=== PATIENT | female | born 1960 | race Caucasian/White ===

== ENCOUNTER 2018-08-08 19:49 | Emergency (ER) | payer BC ==
[~2018-08-08] VITALS: Ht 167.6 cm; Wt 71.4 kg
[~2018-08-08 19:49] MED LIST: ASPIRIN 81 MG E81 MG PO; LOPRESSOR25 MG; PLAVIX75 MG PO; PRAVACHOL40 MG PO
[2018-08-08 20:04] VITALS: Ht 167.6 cm; Wt 71.4 kg
[2018-08-08] MEDS ORDERED: XANAX0.5 MG (20:05)
[2018-08-08 20:56] LABS: APPEARANCE HAZY (CLEAR); COLOR RED (YELLOW); SPECIFIC GRAVITY 1.015 (1.005-1.020)
[2018-08-08 20:57] LABS: BILIRUBIN NEGATIVE (NEGATIVE); GLUCOSE NEGATIVE (NEGATIVE); KETONE NEGATIVE (NEGATIVE); NITRITE NEGATIVE (NEGATIVE); PROTEIN 1+ mg/dL (NEGATIVE); RED CELLS - URINE >50 /hpf (0-5); UROBILINOGEN NORMAL (NORMAL)
[2018-08-08 20:59] LABS: WHITE CELLS - URINE 0-5 /hpf (0-5)
[2018-08-08 21:00] LABS: BACTERIA FEW /hpf (NONE SEEN); EPITHELIAL CELLS OCC /hpf (0-5)
[2018-08-08 22:29] LABS: BASOPHILS 0.1 % (0-2); EOSINOPHILS 0.1 % (0-7); HEMATOCRIT 43.8 % (36.0-48.0); IMMATURE GRANULOCYTES 0.3 % (0-5); LYMPHOCYTES 6.6 % (15-50); MCH 31.3 pg (26.0-34.0); MCHC 34.2 g/dL (31.0-37.0); MCV 91.3 fL (80.0-100.0); MEAN PLATELET VOLUME 9.6 fL (7.4-10.4); MONOCYTES 7.7 % (2-11); NEUTROPHILS 85.2 % (40-80); RDW 12.7 % (11.5-14.5); WBC 18.6 10x3/uL (4.8-10.8)
[2018-08-08 22:30] LABS: ALBUMIN 3.6 g/dL (3.4-5.0); ANION GAP 16.7 mmol/L (8-16); BILIRUBIN - TOTAL 0.64 mg/dL (0.2-1.3); CALCIUM 9.2 mg/dL (8.5-10.1); CARBON DIOXIDE 23.9 mmol/L (21.0-32.0); PLATELET COUNT 312 10x3/uL (130-400); POTASSIUM - SERUM 3.6 mmol/L (3.5-5.1); PROTEIN - SERUM 8.4 g/dL (6.4-8.2)
[2018-08-09] MEDS ORDERED: ZOFRAN8 MG PO (00:29)
[2018-08-09] MEDS ORDERED: TORADOL10 MG PO (00:29)
[2018-08-09 01:24] VITALS: BP 133/75
== END 2018-08-09 01:25 | disposition home or self-care (01) ==
LOC: D.ER 19:49
PROVIDERS: Family Medicine
DX: R10.9 Unspecified abdominal pain (principal); R11.2 Nausea with vomiting, unspecified; R31.9 Hematuria, unspecified; F17.200 Nicotine dependence, unspecified, uncomplicated

== ENCOUNTER → 2018-08-24 18:43 | Outpatient (CLI) | payer BC ==
[2018-08-08 20:04] VITALS: BMI 25.4
[~2018-08-24 18:43] MED LIST changes: +TORADOL10 MG PO; +XANAX0.5 MG; +ZOFRAN8 MG PO
== END | disposition home or self-care (01) ==
LOC: D.LABREF 18:43
PROVIDERS: Urology
DX: N20.0 Calculus of kidney (principal)

== ENCOUNTER → 2018-08-24 19:25 | Outpatient (CLI) | payer BC ==
[2018-08-08 20:04] VITALS: BMI 25.4
== END | disposition home or self-care (01) ==
LOC: D.LABREF 19:25
DX: R31.9 Hematuria, unspecified (principal); D72.829 Elevated white blood cell count, unspecified

== ENCOUNTER 2018-09-04 06:05 | Inpatient (IN) | payer BC ==
[2018-09-03 11:35] LABS: BASOPHILS 0.4 % (0-2); EOSINOPHILS 3.3 % (0-7); HEMATOCRIT 43.3 % (36.0-48.0); HEMOGLOBIN 14.7 g/dL (12-16); IMMATURE GRANULOCYTES 0.1 % (0-5); LYMPHOCYTES 37.9 % (15-50); MCHC 33.9 g/dL (31.0-37.0); MCV 91.4 fL (80.0-100.0); MEAN PLATELET VOLUME 9.3 fL (7.4-10.4); MONOCYTES 8.2 % (2-11); NEUTROPHILS 50.1 % (40-80); PLATELET COUNT 270 10x3/uL (130-400); RBC 4.74 10x6/uL (4.00-5.40); RDW 13.2 % (11.5-14.5); WBC 8.2 10x3/uL (4.8-10.8)
[2018-09-03 11:48] LABS: INR 0.97 (0.85-1.17); PROTIME 12.4 SECONDS (11.6-15.0)
[2018-09-03 11:49] LABS: APTT 29.1 SECONDS (22.8-39.4)
[2018-09-03 11:52] LABS: ANION GAP 11.7 mmol/L (8-16); CALCIUM 8.7 mg/dL (8.5-10.1); CREATININE - SERUM 1.1 mg/dL (0.6-1.3); POTASSIUM - SERUM 3.7 mmol/L (3.5-5.1)
[~2018-09-04] VITALS: Ht 170.2 cm; Wt 73.6 kg
--- NOTE | ~2018-09-04 | HEMODYNAMI ---
PATIENT:KIMBERLY SANABRIA MEDICAL RECORD: [id number] : 62 LOCATION:D[facility] ADMISSION DATE: 09/04/18 Generatedon:09/04/20189:05 Patient name: KIMBERLY SANABRIA Patient #: [id number] SSN: : 1960 Date of study: 09/04/2018 Page: Of Hemodynamic Procedure Report Patient Data Patient Demographics Procedure consent was obtained First Name: KIMBERLY Gender: Female Last Name: DANIELE : 1960 Middle Initial: D Age: 58 year(s) Patient #: [id number] Race: Unknown Additional ID: [id number] Contact details [address]: [address] [place] [address] State: [facility] Zip code: [address] Past Medical History Allergies Allergen Reaction Date Comments Reported Other 09/04/2018 CODIENE,HYDROCODONE,IODINE,MORPHINE allergy AND SULFA Admission Admission Data Admission Date: 09/04/2018 Admission Time: 6:05 Procedure Procedure Types Cath Procedure Peripheral Cath Diagnostic Procedure Nephro Procedure Description Procedure Date Procedure Date: 09/04/2018 Procedure Start Time: 8:20 Procedure Staff Name Function Yosi Hurd MD Performing Physician Finn Echols RT Monitor Ramya Jimenezub Shirley London RN Nurse Lesvia Faith RN Nurse Procedure Data Cath Procedure Fluoroscopy Diagnostic fluoroscopy Total fluoroscopy Time: time: 13.9 min 13.9 min Diagnostic fluoroscopy Total fluoroscopy dose: 149 dose: 149 mGy mGy Contrast Material Contrast Material Type Amount (ml) Isovue 300 15 Procedure Medications Medication Administration Route Dosage Lidocaine 1% added to field 20 Heparin Flush Bag added to field 1 bags (1000units/500ml NS) unlisted medication 1 Versed I.V. 1 mg Fentanyl I.V. 50 mcg Hemodynamics Rest Heart Rate: 98 (bpm) Snapshots Pre Cath Intra NCS Post Cath Vital Signs Time Heart Resp SPO2 etCO2 NIBP (mmHg) Rhythm Pain Sedation Rate (ipm) (%) (mmHg) Status Level (bpm) 8:08:22 69 18 100 28.8 140/83(121) NSR 0 (11) 10(A) , No pain 8:12:36 72 17 100 18.9 134/83(126) NSR 0 (11) 10(A) , No pain 8:17:35 65 17 100 30.3 141/82(110) NSR 0 (11) 10(A) , No pain 8:21:53 72 16 100 27.3 139/80(96) NSR 0 (11) 10(A) , No pain 8:26:09 65 14 100 34.2 131/80(108) NSR 0 (11) 8(A) , No pain 8:30:25 69 13 100 34.2 132/78(94) NSR 0 (11) 8(A) , No pain 8:34:41 71 13 99 34.9 131/76(107) NSR 0 (11) 8(A) , No pain 8:38:55 67 14 99 32.6 128/70(100) NSR 0 (11) 8(A) , No pain 8:43:11 67 14 99 31.9 118/74(97) NSR 0 (11) 8(A) , No pain 8:47:21 69 13 99 35.7 124/76(100) NSR 0 (11) 8(A) , No pain 8:51:35 69 14 99 32.6 127/74(102) NSR 0 (11) 8(A) , No pain 8:55:49 68 14 100 31.9 131/79(104) NSR 0 (11) 8(A) , No pain 9:00:05 68 13 100 31.9 138/75(108) NSR 0 (11) 8(A) , No pain 9:04:21 74 13 100 30.4 130/83(101) NSR 0 (11) 8(A) , No pain Medications Time Medication Route Dose Verified Delivered Reason Notes Effec tiveness by by 8:23:10 Lidocaine 1% added 20ml Yosi Delcua for local to vial Hurd Hurd anesthetic field MD JERNIGAN 8:23:27 Heparin Flush added 1 Yosi Deluca used for Bag to bags Hurd Hurd procedure (1000units/500ml field MD JERNIGAN NS) 8:23:51 CEFEPIME IV 1 GM Yosi Lakhani used for Vickey Faith RN procedure 8:24:03 Versed I.V. 1 mg Yosi Lakhani for Vickey Faith RN sedation 8:24:14 Fentanyl I.V. 50 Yosi Lakhani for mcg Vickey Faith RN sedation Procedure Log Time Note 7:47:49 Finn Echols RT (R) (CV) sent for patient. Start room use. 7:47:58 Time tracking: Regular hours (M-F 7:00 - 5:00) 7:48:07 Plan of Care:Hemodynamics will remain stable., Cardiac rhythm will remain stable., Comfort level will be maintained., Respiratory function will remain adequate., Patient/ family verbilizes understanding of procedure., Procedure tolerated without complication., Recovers from procedure without complications.. 7:48:15 Patient received from Outpatients to IR Alert and oriented. Tansferred to table in Prone position. 7:48:16 Correct patient and procedure confirmed by team. 7:48:18 Signed procedure consent form obtained from patient. 7:48:20 ECG and BP/O2 sat monitors applied to patient. 7:48:21 Full Disclosure recording started 7:48:22 7:48:25 H&P Date Dictated: 09/04/2018 H&P Addendum completed by physician on day of procedure. (MUST COMPLETE FOR ALL OUTPATIENTS). 7:48:27 Pre-op teaching completed and patient verbalized understanding. 7:48:27 Pre-procedure instructions explained to patient. 7:48:33 Family in waiting room. 7:49:30 Patient allergic to Other allergyCODIENE,HYDROCODONE,IODINE,MORPHINE AND SULFA 7:49:34 Use device set IR Diagnostic 7:49:36 Bag Decanter (2002S) opened to sterile field. 7:49:36 Sterile Angiographic Pack opened to sterile field. 7:49:39 Tegaderm 4 x 4 (1626W) opened to sterile field. 7:49:49 Is the patient allergic to Iodine/contrast media? Yes. 7:49:51 Was the patient premedicated? Yes 7:49:53 Is patient on blood thinner?No 7:49:54 Patient diabetic? No. 7:49:55 7:49:56 ----Pre-sedation anethsthesia assessment.---- 7:49:58 Previous problem with sedation/anesthesia? No ? 7:49:59 Snore? Yes 7:50:00 Sleep apnea? No 7:50:02 Deviated septum? No 7:50:06 Opens mouth fully? Yes 7:50:07 Sticks out tongue? Yes 7:50:10 Airway obstruction? No ? 7:50:12 Dentures? No ? 8:01:36 IV patent on arrival in right hand with 0.9% NaCl at [facility]. 8:01:38 Sharps counted by scrub and verified by R.N. 8:01:38 Alarms reviewed by R. N. 8:01:44 LEFT Lumbar area was prepped with chlora-prep and draped in sterile fashion 8:07:11 Baseline sample Acquired. 8:07:11 Vital chart was started 8:18:04 Physician arrived 8:18:04 --------ALL STOP TIME OUT------ 8:18:05 Final Timeout: patient, procedure, and site verified with staff and physician. All members of the team are in agreement. 8:18:12 LEFT Lumbar site verified by team. 8:18:24 Sedation plan: IV Moderate Sedation Medication:Versed, Fentanyl 8:20:09 Procedure started. 8:20:16 Local anesthetic to Lumbar area with Lidocaine 1% by Yosi Hurd MD.INITIAL ACCESS ONLY 8:20:21 GLIDE CATHETER 5FR ANGLED 65cm (CG507) opened to sterile field. 8:20:22 KIT, INTRODUCER ACCUSTICK II W/C ([id number]) opened to sterile field. 8:23:10 Lidocaine 1% 20ml vial added to field was administered by Yosi Hurd MD; for local anesthetic; 8:23:27 Heparin Flush Bag (1000units/500ml NS) 1 bags added to field was administered by Yosi Hurd MD; used for procedure; 8:23:51 CEFEPIME 1 GM IV was administered by Lesvia Faith RN; used for procedure; 8:24:03 Versed 1 mg I.V. was administered by Lesvia Faith RN; for sedation; 8:24:14 Fentanyl 50 mcg I.V. was administered by Lesvia Faith RN; for sedation; 8:32:48 NITINOL .018 80cm wire ([id number]) opened to sterile field. 8:35:19 CHIBA 22 X 15 needle opened to sterile field. 8:52:43 AMPLATZ Super stiff 180cm wire ([id number]) opened to sterile field. 8:57:17 Procedure ended.(Physican Out) 8:57:39 Fluoroscopy time 13.90 minutes. 8:57:44 Fluoroscopy dose: 149 mGy 8:57:44 Flurop Dose total: 149 8:57:46 Sharps counted by scrub and verified by R.N. 8:57:49 Insertion/operative site no bleeding no hematoma. 8:58:02 Post-op/insertion site Left Lumbar area dressed using a 4 x 4 and Tegaderm. 8:58:07 Post procedure instruction explained to patient.Patient verbalizes understanding. 8:58:11 Procedure and supply charges have been captured, reviewed, submitted and are correct. 8:59:34 Contrast amount:Isovue 300 15ml. 9:05:12 Report given to Other. 9:05:18 Patient transfered to Other with Stretcher. 9:05:49 Vital chart was stopped Device Usage Item Name Manufacture Quantity Catalog Hospital Part Current Minimal Lot# / Number Charge Number Stock Stock Serial# Code Bag Decanter Microtek 1 [id number] 5 () Medical Inc. Sterile Cardinal 1 [id number] [id number] 194080 5 Angiographic Health Pack Tegaderm 4 x 3M 1 1626W 353802 129004 231241 5 4 (1626W) GLIDE Terumo 1 CG507 142066 977915 5 CATHETER 5FR ANGLED 65cm (CG507) KIT, [place] 1 [id number] 270207 350082 936243 5 INTRODUCER Scientific ACCUSTICK II W/C ([id number]) NITINOL .018 Medtronic 1 [id number] 769451 [id number] 5 [id number] 80cm wire (S145112) CHIBA 22 X [facility] 1 V70368 378688 664881 5 [id number] 15 needle AMPLATZ [place] 1 [id number] 278007 109677 869629 5 [id number] Super stiff Scientific 180cm wire ([id number]) Signature Audit [place] Stage Time Signature Unsigned Intra-Procedure 09/04/2018 Finn 9:05:46 AM Kinza RT (R) (CV) Signatures Monitor : Finn Signature : Kinza RT Date : Time : [id number] [place] [address]
[~2018-09-04 06:05] MED LIST changes: +CIPRO500 MG PO; +CO Q-10100 MG PO; +FISH OIL 1,0001 CA1 PO; +MAG-OXIDE400 MG PO; +PHENERGAN25 M1 PO; +PROBIOTIC250 MG PO; -XANAX0.5 MG; +XANAX0.5 MG PO
[2018-09-04] MEDS ORDERED: PREDNISONE20 MG (06:40)
[2018-09-04] MEDS ORDERED: BENADRYL50 MG PO (06:42)
[2018-09-04 07:11] VITALS: BP 111/73; BMI 25.4
--- NOTE | 2018-09-04 12:55 | OP ---
PATIENT NAME: KIMBERLY SANABRIA MEDICAL RECORD: [id number] :62 LOCATION:[facility] ADMISSION DATE: SURGEON: HECTOR DOTY MD DATE OF OPERATION: 09/04/2018 SURGEON: Hector Doty MD ANESTHESIA: General anesthesia by Avelino Rhodes CRNA. 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 PROCEDURE: Cystoscopy, left percutaneous nephrolithotomy, left ureteroscopy. FINDINGS: Radiodense 2.1cm renal pelvis stone. A 1.8 cm lower pole renal calcification in the parenchyma. No stones seen in the left ureter. ESTIMATED BLOOD LOSS: Minimal. 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. She went to the Emergency Room on 08/08/2018 with left flank pain, high fevers, chills and rigors. CT scan shows perinephric stranding consistent with pyelonephritis. It also shows a 2.1 cm left upper pole staghorn calculus and a 1.8 cm possible lower pole staghorn calculus also. There is also a possible 6 mm mid ureteral stone in the left ureter. The left kidney is atrophied compared to the right. The patient had recurrent urinary tract infections and pyelonephritis as a child. She had bilateral vesicoureteral reflux. Bilateral ureteral reimplantation was performed at age 8. Since then, she has been passing kidney stones since age 7. She has saved some of these stones and I had them sent for analysis. The stone analysis is still pending. Her urine was cultured. She was put on Cipro for suppression. The stones are infected and they need to come out. Her urine culture grew Klebsiella pneumoniae, which is sensitive to Cipro and Levaquin. SHE IS ALLERGIC TO CODEINE, HYDROCODONE, IODINATED CONTRAST, MORPHINE, SULFA. She had cardiac clearance given by Dr. Prieto. She has 2 coronary artery stents and a right femoral artery stent. She was given Levaquin IV car salesperson to the OR. Earlier today, she had a nephroureteral access placed by Dr. Hurd. He tried to put it through the lower pole, but he did not get any access through the lower pole. He then placed an upper pole access with the intention that if I needed to get at the lower pole, I could easily swing my scope downwards into the lower pole. He left a nephroureteral catheter, which goes through the kidney down the ureter and into the bladder. DESCRIPTION OF PROCEDURE: The patient was given induction of general anesthesia while on the stretcher in supine position. Once she was asleep, she was frog legged and her vulva was prepped and draped. Cystoscopy was performed and the left nephroureteral catheter was identified. Grasping forceps were used to pull the distal end of the catheter out through the urethra. This way when the access wire was placed, we can clamp it off with a hemostat and that will prevent backwards migration of the access wire and loss of the tract. A Devine catheter was placed into the bladder. This was put to bag drainage. The patient was then turned over into the prone position on the Rogelio frame. She was then prepped and draped. The nephroureteral catheter was then accessed with an Amplatz Super Stiff wire. Once the wire came out of the urethral meatus through the distal end of the stent that we pulled out to the cystoscopy, the OPERATIVE REPORT [id number] KIMBERLY SANABRIA circulating nurse placed a hemostat on the wire to prevent its backward migration. I could then remove the nephroureteral catheter entirely and discard it. A 1-cm incision was made on either side of the wire. The dual-lumen catheter was then inserted over the wire. Through the second lumen, we inserted a sensor wire to act as a safety wire. The distal end coiled up in the bladder. With the [address], the dual lumen catheter was removed. The safety wire was clamped to the drapes with a hemostat. We then worked over the Super Stiff wire. A 30-[place]ine[place] NephroMax dilation balloon was used. The tract was dilated with 16 atmospheres of pressure and the working sheath was inserted over the inflated balloon into the renal pelvis. The balloon was then deflated and removed entirely. Putting the nephroscope in, we could see the large renal pelvis stone. The [place] LithoClast ultrasonic probe was then introduced and the stone was broken up into smaller pieces. The larger fragments were removed using the Cook Perc-NCircle basket. The smaller little residual fragments were removed by suctioning them out using the [place] LithoClast ultrasonic probe. This entirely removed the 2.1 cm renal pelvis stone in short order. The difficulty then laid in finding another possible stone in the lower pole. All the lower pole calices were examined and the scope was seen to be superimposed upon the calcification. Yet there was no visible stone. In discussion of the situation with Dr. Hurd, it was apparent that the lower pole calcifications are probably just parenchymal calcifications. The nephroscope was then removed. I did want to check the ureter and therefore, the flexible ureteroscope was placed all the way down the ureter from the UP junction all the way down to the UV junction. No stones were seen. The scope was then removed. Over the working wire, we placed the 24-Guine[place] Malecot nephrostomy tube. Once the tube was down into the renal pelvis, the working sheath and the safety wire were removed entirely. Fluoroscopy confirmed that the Malecot tip was within the renal pelvis. We then removed the working wire entirely by pulling it distally out through the urethra. A 2-0 silk suture was used as a drain suture to tie the Malecot drain down to the skin. The Malecot nephrostomy tube was then put to bag drainage. A dressing of 4 x 4 gauze and an ABD pad plus tape was placed over the nephrostomy tube. The patient was then placed back into the supine position on the stretcher. The Devine catheter was removed and the patient was awakened and brought to the recovery room. TRANSINT:[id number] Voice Confirmation ID: [id number] DOCUMENT ID: [id number] HECTOR DOTY MD at 1255 CC: [id number] DICTATION DATE: 09/04/18 1218 DEATH CLEARANCE COORDINATOR: 09/04/18 1251 REG [facility] [address] [place] [address]
[2018-09-04 13:13] VITALS: BP 130/72
[2018-09-04 13:28] VITALS: BMI 25.4
[2018-09-04 21:50] VITALS: BP 120/67
--- NOTE | 2018-09-05 03:33 | NUR ---
REC'D SITTING ON SIDE OF BED. AT BEDSIDE. LGE. DRSG YO LEFT NEPHROSTOMY SITE.CONNECTED TO VALERIO GRAVITY DRAINAGE BAG THICK DK RED URINE WITH COUPLE THICK DK CLOTS OBSERVED.DENIES PAIN AT PRESENT TIME.ROOM AIR WILL CONTINUE TO MONITOR FOR ANY CHGES. AND FOLLOW CURRENT PLAN OF CARE.
--- NOTE | 2018-09-05 04:35 | NUR ---
PT LYING IN BED, NO SIGNS OF DISTRESS. DENIES NEEDS. CL IN REACH, WILL CONTINUE TO MONITOR
[2018-09-05 05:26] VITALS: BP 128/62
--- NOTE | 2018-09-05 07:25 | NUR ---
PT RESTING IN BED, EYES CLOSED. RESPIRATIONS EVEN AND UNLABORED. NO C/O PAIN. NO S/S OF ACUTE DISTRESS NOTED. AT BEDSIDE. PT HAS NEPHROSTOMY TUBE TO LEFT SIDE. PT ADMITTED WITH KIDNEY STONES. IV TO RIGHT HAND, SITE PATENT WITHOUT REDNESS OR SWELLING, SL. PT DENIES ANYTHING FURTHER AT THIS TIME. CALL LIGHT IN REACH. WILL CONTINUE TO MONITOR.
--- NOTE | 2018-09-05 09:30 | NUR ---
PT C/O NEPHROSTOMY DRAIN NOT DRAINING, MILKED LINE. LARGE CLOT REMOVED FROM LINE. PT STATES IT FEELS MUCH BETTER NOW. PT DENIES ANYTHING FURTHER AT THIS TIME. CALL LIGHT IN REACH. WILL CONTINUE TO MONITOR.
[2018-09-05 10:43] VITALS: Ht 170.2 cm; Wt 73.6 kg
--- NOTE | 2018-09-05 14:11 | MORECARE ---
CASE MANAGEMENT DISCHARGE SUMMARY PATIENT: KIMBERLY SANABRIA UNIT: [id number] ADM DATE: 09/04/18 AGE: 58 : 62 SEX: F ROOM/BED: D.2226 AUTHOR: RUDYDOC PHYSICIAN: REFERRING PHYSICIAN: HECTOR DOTY MD DATE OF SERVICE: 09/05/18 Discharge Plan Patient Name: KIMBERLY SANABRIA Facility: [facility]:[place] : 1960 Planned Disposition: Home Anticipated Discharge Date: 09/05/18 Discharge Date: Expected LOS: 1 Initial Reviewer: [email or web address] Initial Review Date: 09/05/2018 Generated: 09/05/18 3:10 pm Comments DCP- Discharge Planning Updated by [email or web address]: Carina Rendon on 09/05/18 1:[address] Patient Name: KIMBERLY SANABRIA Admission Status: Elective Accout number: [id number] Admission Date: 09-04-2018 : 1960 Admission Diagnosis: Attending: RAYMON DOTY Current LOS: 1 Anticipated DC Date: 09-05-2018 Planned Disposition: Home Primary Insurance: [employer] [place] PPO Discharge Planning Comments: CM met with patient to discuss discharge planning, she is alone in the room. States she lives with her in a two story house. States her bedroom is on the first floor, so there is no reason for her to go upstairs. States she is independent with all ADL's and IADL's. States her will take her home on discharge. Declines need for home health. States her mother is also going to come and help if needed at home. Denies having any DME or needing any DME. No needs identified. CM will continue to follow and assist with discharge planning/needs. Community Health Planning Director: Carina Rendon DCPIA - Discharge Planning Initial Assessment Updated by [email or web address]: Carina Rendon on 09/05/18 2:02 pm * Is the patient Alert and Oriented? Yes * How many steps to enter\exit or inside your home? 0/flight * PCP Dr. Jack * Pharmacy [facility] * Preadmission Environment Home with Family * ADLs Independent * Equipment None * List name and contact numbers for known caregivers / representatives who currently or will assist patient after discharge: Bill - - [phone] * Verbal permission to speak to the caregivers and representatives has been obtained from the patient. Yes * Community resources currently utilized None * Additional services required to return to the preadmission environment? No * Can the patient safely return to the preadmission environment? Yes * Has this patient been hospitalized within the prior 30 days at any hospital? No Patient Name: KIMBERLY SANABRIA Page [id number] at 1411 All edits/amendments must be made on the electronic document DICTATION DATE: 09/05/181409 PRINTS AND DRAWINGS CURATOR: LAYLA 09/05/181409 RPT#: [id number] DC DATE: STATUS: REG [facility] [address] [place] [address] END OF REPORT
[2018-09-05 16:17] LABS: APPEARANCE CLEAR (CLEAR); BILIRUBIN NEGATIVE (NEGATIVE); COLOR YELLOW (YELLOW); GLUCOSE NEGATIVE (NEGATIVE); KETONE NEGATIVE (NEGATIVE); NITRITE NEGATIVE (NEGATIVE); PROTEIN NEGATIVE (NEGATIVE); UROBILINOGEN NORMAL (NORMAL)
[2018-09-05 16:19] LABS: BACTERIA FEW /hpf (NONE SEEN); RED CELLS - URINE OCC /hpf (0-5); WHITE CELLS - URINE OCC /hpf (0-5)
--- NOTE | 2018-09-05 18:55 | NUR ---
PT SITTING UP IN BED. AT BEDSIDE. NO C/O PAIN. NO S/S OF DISTRESS NOTED. CALL LIGHT IN REACH. PT DENIES ANYTHING FURTHER AT THIS TIME. WILL CONTINUE TO MONITOR.
[2018-09-05 20:08] VITALS: BP 104/54
[2018-09-06 00:31] VITALS: BP 101/51
--- NOTE | 2018-09-06 03:40 | NUR ---
A/OX4. BREATHING EVEN AND UNLABORED. NO NEEDS AT THIS TIME WILL CONTINUE POC.
[2018-09-06 04:34] VITALS: BP 105/89
--- NOTE | 2018-09-06 07:15 | NUR ---
PT RESTING IN BED, EYES OPEN. NO C/O PAIN. NO S/S OF ACUTE DISTRESS NOTED. NEPHROSTOMY TUBE PRESENT TO LEFT POSTERIOR CHEST. PT ALERT AND ORIENTED. PT UP AD ATTILA. IV TO RIGHT HAND, SITE PATENT WITHOUT REDNESS OR SWELLING, SL. AT BEDSIDE. PT DENIES ANYTHING FURTHER AT THIS TIME. CALL LIGHT IN REACH. WILL CONTINUE TO MONITOR.
--- NOTE | 2018-09-06 10:15 | NUR ---
ASSISTED DR. DOTY WITH REMOVAL OF NEPHROSTOMY TUBE. PT C/O PAIN FROM REMOVAL. GAVE TORADOL FOR PAIN. NO S/S OF ACUTE DISTRESS NOTED. DRESSED WOUND WITH 4X4, ABD PAD. PT DENIES ANYTHING FURTHER AT THIS TIME. CALL LIGHT IN REACH. AT BEDSIDE. WILL CONTINUE TO MONITOR.
--- NOTE | 2018-09-06 10:26 | MORECARE ---
CASE MANAGEMENT DISCHARGE SUMMARY PATIENT: KIMBERLY SANABRIA UNIT: [id number] ADM DATE: 09/04/18 AGE: 58 : 62 SEX: F ROOM/BED: D.2226 AUTHOR: NADER GRANT PHYSICIAN: REFERRING PHYSICIAN: HECTOR DOTY MD DATE OF SERVICE: 09/06/18 Discharge Plan Patient Name: KIMBERLY SANABRIA Facility: [facility]:[place] : 1960 Planned Disposition: Home Anticipated Discharge Date: 09/05/18 Discharge Date: Expected LOS: 1 Initial Reviewer: [email or web address] Initial Review Date: 09/05/2018 Generated: 09/06/18 11:26 am Comments DCP- Discharge Planning Updated by [email or web address]: Carina Rendon on 09/06/18 9:[address] Patient Name: KIMBERLY SANABRIA Encounter No: [id number] : 1960 Primary Insurance: [employer] PPO Anticipated DC Date: 09-05-2018 Planned Disposition: Home External Planned Provider: : DCP follow-up note: Patient and family in agreement with discharge plan. No changes to plan. Case management will follow and assist as needed. Carina Rendon DCP- Discharge Planning Updated by [email or web address]: Carina Rendon on 09/05/18 1:[address] Patient Name: KIMBERLY SANARBIA Admission Status: Elective Accout number: [id number] Admission Date: 09-04-2018 : 1960 Admission Diagnosis: Attending: RAYMON DOTY Current LOS: 1 Anticipated DC Date: 09-05-2018 Planned Disposition: Home Primary Insurance: [employer] [place] PPO Discharge Planning Comments: CM met with patient to discuss discharge planning, she is alone in the room. States she lives with her in a two story house. States her bedroom is on the first floor, so there is no reason for her to go upstairs. States she is independent with all ADL's and IADL's. States her will take her home on discharge. Declines need for home health. States her mother is also going to come and help if needed at home. Denies having any DME or needing any DME. No needs identified. CM will continue to follow and assist with discharge planning/needs. Relish Blender: Carina Rendon DCPIA - Discharge Planning Initial Assessment Updated by [email or web address]: Carina Justice on 09/05/18 2:02 pm * Is the patient Alert and Oriented? Yes * How many steps to enter\exit or inside your home? 0/flight * PCP Dr. Jack * Pharmacy [facility] * Preadmission Environment Home with Family * ADLs Independent * Equipment None * List name and contact numbers for known caregivers / representatives who currently or will assist patient after discharge: [facility] [email or web address] - [phone] * Verbal permission to speak to the caregivers and representatives has been obtained from the patient. Yes * Community resources currently utilized None * Additional services required to return to the preadmission environment? No * Can the patient safely return to the preadmission environment? Yes * Has this patient been hospitalized within the prior 30 days at any hospital? No Last DP export: 09/05/18 1:11 p Patient Name: KIMBERLY SANABRIA Page [id number] at 1026 All edits/amendments must be made on the electronic document DICTATION DATE: 09/06/18 1026 COIN MACHINE OPERATOR: LAYLA 09/06/18 1026 RPT#: [id number] SC DATE: STATUS: REG [facility] [address] [place] [address] END OF REPORT
--- NOTE | 2018-09-06 11:38 | NUR ---
PT DISCHARGED HOME WITH AD ATTILA. REFUSED WHEELCHAIR. IV DISCONTINUED, CATHETER TIP INTACT. PT DENIES ANYTHING FURTHER. NO C/O PAIN. NO S/S OF DISTRESS NOTED.
--- NOTE | 2018-09-06 11:39 | NUR ---
WENT OVER DISCHARGE INSTRUCTIONS WITH PT. PT ACKNOWLEDGED AND UNDERSTOOD INTRUCTIONS.
[2018-09-11 10:16] LABS: CALCULI - COLOR Tan (()); CALCULI - CYSTINE 100 % (()); CALCULI - WEIGHT 1105.9 mg (())
--- NOTE | 2018-09-19 07:11 | MORECARE ---
CASE MANAGEMENT DISCHARGE SUMMARY PATIENT: KIMBERLY SANABRIA UNIT: [id number] ADM DATE: 09/04/18 AGE: 58 : 62 SEX: F ROOM/BED: D.2226 AUTHOR: NADER GRANT PHYSICIAN: REFERRING PHYSICIAN: HECTOR DOTY MD DATE OF SERVICE: 09/19/18 Discharge Plan Patient Name: KIMBERLY SANABRIA Facility: [facility]:[place] : 1960 Planned Disposition: Home Anticipated Discharge Date: 09/05/18 Discharge Date: 09/06/2018 Expected LOS: 1 Initial Reviewer: [email or web address] Initial Review Date: 09/05/2018 Generated: 09/19/18 8:11 am Comments DCP- Discharge Planning Updated by [email or web address]: Carina Rendon on 09/06/18 9:[address] Patient Name: KIMBERLY SANABRIA Encounter No: [id number] : 1960 Primary Insurance: [email or web address] PPO Anticipated DC Date: 09-05-2018 Planned Disposition: Home External Planned Provider: : DCP follow-up note: Patient and family in agreement with discharge plan. No changes to plan. Case management will follow and assist as needed. Carina Rendon DCP- Discharge Planning Updated by [email or web address]: Carina Rendon on 09/05/18 1:[address] Patient Name: KIMBERLY SANABRIA Admission Status: Elective Accout number: [id number] Admission Date: 09-04-2018 : 1960 Admission Diagnosis: Attending: RAYMON DOTY Current LOS: 1 Anticipated DC Date: 09-05-2018 Planned Disposition: Home Primary Insurance: [employer] [place] PPO Discharge Planning Comments: CM met with patient to discuss discharge planning, she is alone in the room. States she lives with her in a two story house. States her bedroom is on the first floor, so there is no reason for her to go upstairs. States she is independent with all ADL's and IADL's. States her will take her home on discharge. Declines need for home health. States her mother is also going to come and help if needed at home. Denies having any DME or needing any DME. No needs identified. CM will continue to follow and assist with discharge planning/needs. Graphics Manager: Carina Rendon DCPIA - Discharge Planning Initial Assessment Updated by [email or web address]: Carina Justice on 09/05/18 2:02 pm * Is the patient Alert and Oriented? Yes * How many steps to enter\exit or inside your home? 0/flight * PCP Dr. Jack * Pharmacy [facility] * Preadmission Environment Home with Family * ADLs Independent * Equipment None * List name and contact numbers for known caregivers / representatives who currently or will assist patient after discharge: [place] - [email or web address] - [phone] * Verbal permission to speak to the caregivers and representatives has been obtained from the patient. Yes * Community resources currently utilized None * Additional services required to return to the preadmission environment? No * Can the patient safely return to the preadmission environment? Yes * Has this patient been hospitalized within the prior 30 days at any hospital? No Last DP export: 09/06/18 9:26 a Patient Name: KIMBERLY SANABRIA Page 26794 at 0711 All edits/amendments must be made on the electronic document DICTATION DATE: 09/19/18710 ASBESTOS HANDLER: LAYLA 09/19/18710 RPT#: [id number] RI DATE:09/06/18 STATUS: DIS IN [facility] [address] [place] [address] END OF REPORT
== END 2018-09-06 11:30 | disposition home or self-care (01) | DRG 660 ==
LOC: D.OPS 06:05 → D.MS 06:05 → D.OPS 07:30 → D.PAN 07:30 → D.OPS 08:00 → D.MS 12:00 → D.OPS 12:55 → D.MS 12:55 → D.OPS 09-06 11:30
PROVIDERS: Specialist; ADMIT Urology
PROC: 0T9130Z Drainage of Left Kidney with Drainage Device, Percutaneous Approach (ICD-10-PCS; 2018-09-04)
PROC: 0TC13ZZ Extirpation of Matter from Left Kidney, Percutaneous Approach (ICD-10-PCS; principal; 2018-09-04 08:00)
PROC: 0TJB8ZZ Inspection of Bladder, Via Natural or Artificial Opening Endoscopic (ICD-10-PCS; 2018-09-04 10:00)
DX: N20.0 Calculus of kidney (principal); N11.8 Other chronic tubulo-interstitial nephritis; Z87.442 Personal history of urinary calculi; B96.1 Klebsiella pneumoniae [K. pneumoniae] as the cause of diseases classified elsewhere

== ENCOUNTER → 2018-09-19 18:58 | Outpatient (CLI) | payer BC ==
[2018-09-05 10:43] VITALS: BMI 25.4
[~2018-09-19 18:58] MED LIST changes: +BENADRYL50 MG PO; +PREDNISONE20 MG
== END | disposition home or self-care (01) ==
LOC: D.LABREF 18:58
DX: R31.9 Hematuria, unspecified (principal); D72.829 Elevated white blood cell count, unspecified

== ENCOUNTER → 2018-11-28 09:20 | Outpatient (CLI) | payer BC ==
[2018-09-05 10:43] VITALS: BMI 25.4
[~2018-11-28 09:20] MED LIST changes: +ALBUTEROL SULF8.5 GM INH; +CRESTOR20 MG PO; +DEMEROL100 MG PO; +EFFEXOR XR75 MG PO; +FLORAJEN3 CAPS460 MG PO; +KLONOPIN1 MG PO; +KRILL OIL 1,001 EAC1 PO; +LEVOFLOXACIN500 MG PO; +LOZOL 2.5 MG T2.5 MG PO; +NEURONTIN 300300 MG PO; +PREDNISONE10 MG PO; +STOOL SOFTENER100 M1 PO; +TOPROL XL25 MG PO; +UROCIT-K10 MEQ; +[UNRECOGNIZED DRUG - OTHER] PO; +[UNRECOGNIZED DRUG - OTHER] PO
== END | disposition home or self-care (01) ==
LOC: D.HCCARDIO 09:20
PROVIDERS: ATTEND Internal Medicine Cardiovascular Disease
DX: I25.10 Atherosclerotic heart disease of native coronary artery without angina pectoris (principal)

== ENCOUNTER → 2019-03-20 18:32 | Outpatient (CLI) | payer BC ==
[2018-09-05 10:43] VITALS: BMI 25.4
[~2019-03-20 18:32] MED LIST changes: -ALBUTEROL SULF8.5 GM INH; -CRESTOR20 MG PO; -DEMEROL100 MG PO; -EFFEXOR XR75 MG PO; -FLORAJEN3 CAPS460 MG PO; -KLONOPIN1 MG PO; -KRILL OIL 1,001 EAC1 PO; -LEVOFLOXACIN500 MG PO; -LOZOL 2.5 MG T2.5 MG PO; -NEURONTIN 300300 MG PO; -PREDNISONE10 MG PO; -STOOL SOFTENER100 M1 PO; -TOPROL XL25 MG PO; -UROCIT-K10 MEQ; -[UNRECOGNIZED DRUG - OTHER] PO; -[UNRECOGNIZED DRUG - OTHER] PO
== END | disposition home or self-care (01) ==
LOC: D.LABREF 18:32
PROVIDERS: ATTEND Urology
DX: D72.829 Elevated white blood cell count, unspecified (principal); R31.9 Hematuria, unspecified

== ENCOUNTER 2019-05-07 06:00 | Inpatient (IN) | payer BC ==
[2019-05-06 09:56] LABS: BASOPHILS 0.1 % (0-2); EOSINOPHILS 1.6 % (0-7); HEMATOCRIT 36.4 % (36.0-48.0); HEMOGLOBIN 12.5 g/dL (12-16); IMMATURE GRANULOCYTES 0.1 % (0-5); LYMPHOCYTES 31.2 % (15-50); MCH 28.2 pg (26.0-34.0); MCHC 34.3 g/dL (31.0-37.0); MCV 82.2 fL (80.0-100.0); MEAN PLATELET VOLUME 8.3 fL (7.4-10.4); MONOCYTES 11.1 % (2-11); NEUTROPHILS 55.9 % (40-80); PLATELET COUNT 264 10x3/uL (130-400); RBC 4.43 10x6/uL (4.00-5.40); RDW 14.7 % (11.5-14.5); WBC 7.4 10x3/uL (4.8-10.8)
[2019-05-06 10:02] LABS: INR 0.9 (0.85-1.17); PROTIME 11.7 SECONDS (11.6-15.0)
[2019-05-06 10:05] LABS: ANION GAP 10.9 mmol/L (8-16); CALCIUM 8.5 mg/dL (8.5-10.1); CARBON DIOXIDE 30.9 mmol/L (21.0-32.0); CREATININE - SERUM 0.9 mg/dL (0.6-1.3); POTASSIUM - SERUM 3.8 mmol/L (3.5-5.1)
--- NOTE | 2019-05-06 15:28 | NUR ---
ATTEMPT TO CALL PT NO ANSWER.
[~2019-05-07] VITALS: Ht 170.2 cm; Wt 68.2 kg
--- NOTE | ~2019-05-07 | HEMODYNAMI ---
PATIENT:KIMBERLY SANABRIA MEDICAL RECORD: [id number] : 62 [facility] ADMISSION DATE: 05/07/19 Generatedon:05/07/20199:09 Patient name: KIMBERLY SANABRIA Patient #: [id number] SSN: : 1960 Date of study: 05/07/2019 Page: Of Hemodynamic Procedure Report Patient Data Patient Demographics Procedure consent was obtained First Name: KIMBERLY Gender: Female Last Name: DANIELE : 1960 Middle Initial: D Age: 58 year(s) Patient #: [id number] Race: Unknown Additional ID: [id number] Contact details Address: [address] [place] [address] State: [facility] Zip code: [address] Past Medical History Allergies Allergen Reaction Date Comments Reported Other 09/04/2018 CODIENE,HYDROCODONE,IODINE,MORPHINE allergy AND SULFA Other 05/07/2019 iodine, codeine, hydrocodeine, allergy sulfa Admission Admission Data Admission Date: 05/07/2019 Admission Time: 6:00 Procedure Procedure Types Cath Procedure Peripheral Cath Diagnostic Procedure Nephro Perc Neph Uret Cath Procedure Description Procedure Date Procedure Date: 05/07/2019 Procedure Start Time: 8:53 Procedure End Time: 9:08 Procedure Staff Name Function Edison Bailey MD Performing Physician HANH NOWAK RT Monitor Camille Benitez RN Nurse Lesvia Faith RN Nurse Kiya Montanez RT Scrub Procedure Data Cath Procedure Fluoroscopy Diagnostic fluoroscopy Total fluoroscopy Time: 2.3 time: 2.3 min min Diagnostic fluoroscopy Total fluoroscopy dose: 24 dose: 24 mGy mGy Contrast Material Contrast Material Type Amount (ml) Isovue 300 10 Procedure Medications Medication Administration Route Dosage Heparin Flush Bag added to field 1 bags (1000units/500ml NS) Lidocaine 1% added to field 20 Fentanyl I.V. 50 mcg Versed I.V. 1 mg Versed I.V. 1 mg Fentanyl I.V. 50 mcg Hemodynamics Rest Heart Rate: 91 (bpm) Snapshots Pre Cath Intra NCS Post Cath Vital Signs Time Heart Resp SPO2 etCO2 NIBP (mmHg) Rhythm Pain Sedation Rate (ipm) (%) (mmHg) Status Level (bpm) 8:36:46 78 16 97 22.5 133/84(110) NSR 0 (11) 10(A) , No pain 8:40:50 78 17 98 34.6 141/82(122) NSR 0 (11) 10(A) , No pain 8:45:02 73 17 97 36.8 123/61(101) NSR 0 (11) 10(A) , No pain 8:49:05 75 17 97 34.6 118/65(98) NSR 0 (11) 10(A) , No pain 8:53:09 83 16 96 37.6 105/58(77) NSR 0 (11) 10(A) , No pain 8:57:11 73 14 92 39.8 105/53(89) NSR 0 (11) 8(A) , No pain 9:01:11 80 13 100 36.8 116/63(97) NSR 0 (11) 8(A) , No pain 9:05:10 77 14 100 35.3 122/70(99) NSR 0 (11) 8(A) , No pain Medications Time Medication Route Dose Verified Delivered Reason Notes Effect iveness by by 8:47:16 Heparin Flush added 1 M J Long M J Long used for Bag to bags MD JERNIGAN procedure (1000units/500ml field NS) 8:47:44 Lidocaine 1% added 20ml M J Long M J Long used for to vial MD JERNIGAN procedure field 8:54:13 Fentanyl I.V. 50 M J Long Lesvia for mcg MD Faith RN sedation 8:54:25 Versed I.V. 1 mg M J Long Lesvia for MD Marcell SANCHEZ sedation 8:58:27 Versed I.V. 1 mg M J Long Lesvia for MD Marcell SANCHEZ sedation 8:58:34 Fentanyl I.V. 50 M J Long Lesvia for riri Faith RN sedation Procedure Log Time Note 7:37:34 Use device set IR Diagnostic 7:37:36 Bag Decanter (2001S) opened to sterile field. 7:37:37 Sterile Angiographic Pack opened to sterile field. 7:37:38 Tegaderm 4 x 4 (1626W) opened to sterile field. 7:37:46 TUBING High Pressure Extension Tubing ([place]irkland) ([id number]) opened to sterile field. 7:37:55 KIT, INTRODUCER ACCUSTICK II W/C ([id number]) opened to sterile field. 7:38:02 8:30:23 Camille Benitez RN sent for patient. Start room use. 8:30:25 Time tracking: Regular hours (M-F 7:00 - 5:00) 8:30:29 Plan of Care:Hemodynamics will remain stable., Cardiac rhythm will remain stable., Comfort level will be maintained., Respiratory function will remain adequate., Patient/ family verbilizes understanding of procedure., Procedure tolerated without complication., Recovers from procedure without complications.. 8:30:42 Patient received from Outpatients to IR Alert and oriented. Tansferred to table in Prone position. 8:30:44 Signed procedure consent form obtained from patient. 8:30:45 Warm blankets applied, and maria antonia hugger turned on for patient comfort. 8:30:46 Correct patient and procedure confirmed by team. 8:30:46 ECG and BP/O2 sat monitors applied to patient. 8:30:50 8:30:57 H&P Date Dictated: 05/07/2019 H&P Addendum completed by physician on day of procedure. (MUST COMPLETE FOR ALL OUTPATIENTS). 8:30:59 Pre-procedure instructions explained to patient. 8:31:00 Pre-op teaching completed and patient verbalized understanding. 8:31:03 Patient NPO since Midnight. 8:31:48 Patient allergic to Other allergyiodine, codeine, hydrocodeine, sulfa 8:31:51 Is the patient allergic to Iodine/contrast media? yes. Patient did prep. 8:32:40 Is patient on blood thinner?Yes 8:33:00 Patient diabetic? No. 8:33:02 8:33:04 ----Pre-sedation anethsthesia assessment.---- 8:33:09 Snore? No 8:33:11 Sleep apnea? No 8:33:12 Deviated septum? No 8:33:14 Opens mouth fully? Yes 8:33:15 Sticks out tongue? Yes 8:33:26 Airway obstruction? Yes ? 8:33:49 Dentures? No ? 8:33:52 8:34:39 IV patent on arrival in right forearm with Lactated Ringers at KVO. 8:35:20 Left Renal was prepped with chlora-prep and draped in sterile fashion. 8:35:22 Alarms reviewed by Roro Gonzalez 8:35:23 Sharps counted by scrub and verified by Sue 8:35:24 8:35:38 Vital chart was started 8:35:39 Baseline sample Acquired. 8:35:41 Full Disclosure recording started 8:35:43 8:41:36 GLIDE CATHETER 5FR ANGLED 65cm (CG507) opened to sterile field. 8:41:37 CHIBA 22 X 15 needle opened to sterile field. 8:42:33 8:46:34 Physician arrived 8:46:47 2) 60-89 Mildly reduced kidney function, and other findings (as for stage 1) point to kidney disease. 8:46:53 Fire Safety Assessment: A--An alcohol-based skin anteseptic being used preoperatively., C--Open oxygen or nitrous oxide is being used. 8:47:16 Heparin Flush Bag (1000units/500ml NS) 1 bags added to field was administered by Edison Bailey MD; used for procedure; 8:47:27 --------ALL STOP TIME OUT------ 8:47:28 Final Timeout: patient, procedure, and site verified with staff and physician. All members of the team are in agreement. 8:47:37 Left Renal site verified by team. 8:47:44 Lidocaine 1% 20ml vial added to field was administered by Edison Bailey MD; used for procedure; 8:50:27 Procedure started. 8:53:39 Local anesthetic to Left Renal area with Lidocaine 1% by Edison Bailey MD.INITIAL ACCESS ONLY 8:54:13 Fentanyl 50 mcg I.V. was administered by Lesvia Faith RN; for sedation; 8:54:25 Versed 1 mg I.V. was administered by Lesvia Faith RN; for sedation; 8:58:27 Versed 1 mg I.V. was administered by Lesvia Faith RN; for sedation; 8:58:34 Fentanyl 50 mcg I.V. was administered by Lesvia Faith RN; for sedation; 8:59:43 GLIDE WIRE ANGLE 180cm ([id number]) opened to sterile field. 9:01:19 Procedure ended.(Physican Out) 9:01:53 Fluoroscopy time 02.30 minutes. 9:02:02 Fluoroscopy dose: 24 mGy 9:02:02 Flurop Dose total: 24 9:02:06 Contrast amount:Isovue 300 10ml. 9:02:41 Post-op/insertion site Left Renall dressed using a 4 x 4 and Tegaderm. 9:03:01 Post procedure instruction explained to patient.Patient verbalizes understanding. 9:03:04 Procedure and supply charges have been captured, reviewed, submitted and are correct. 9:08:53 Vital chart was stopped 9:08:55 Procedure ended. 9:08:55 Full Disclosure recording stopped Device Usage Item Name Manufacture Quantity Catalog Hospital Part Current Minimal Lot# / Number Charge Number Stock Stock Serial# Code Bag Decanter Microtek 1 [id number] 5 () Medical Inc. Sterile Cardinal 1 [id number] 863497 [id number] 5 Angiographic Health Pack Tegaderm 4 x 3M 1 1626W 516220 878558 913021 5 4 (1626W) KIT, [place] 1 [id number] 593118 566415 [id number] 5 INTRODUCER Scientific ACCUSTICK II W/C ([id number]) TUBING High Merit 1 [id number] 720738 79515 362139 10 Pressure Medical Extension Tubing ([place]irkland) ([id number]) GLIDE Terumo 1 CG507 847342 370632 5 CATHETER 5FR ANGLED 65cm (CG507) CHIBA 22 X Cook Medical 1 [id number] 864961 885855 5 [id number] 15 needle GLIDE WIRE Terumo 1 [id number] 627741 077130 061169 5 ANGLE 180cm (AD0974) Signature Audit [place] Stage Time Signature Unsigned Intra-Procedure 05/07/2019 HANH NOWAK RT 9:09:11 AM (R) Signatures Performing Physician : Signature : Edison Bailey MD Date : Time : Monitor : LACY SHE RT Signature : Date : Time : Nurse : Camille Benitez RN Signature : Date : Time : Nurse : Lesvia Marcell RN Signature : Date : Time : [address] [place] [address]
[~2019-05-07 06:00] MED LIST changes: +ALBUTEROL SULF8.5 GM INH; +CRESTOR20 MG PO; +EFFEXOR XR75 MG PO; +FLORAJEN3 CAPS460 MG PO; +KLONOPIN1 MG PO; +KRILL OIL 1,001 EAC1 PO; +LEVOFLOXACIN500 MG PO; +LOZOL 2.5 MG T2.5 MG PO; +NEURONTIN 300300 MG PO; +STOOL SOFTENER100 M1 PO; +TOPROL XL25 MG PO; +UROCIT-K10 MEQ; +[UNRECOGNIZED DRUG - OTHER] PO; +[UNRECOGNIZED DRUG - OTHER] PO
[2019-05-07] MEDS ORDERED: PREDNISONE10 MG PO (06:36)
[2019-05-07] MEDS ORDERED: PHENERGAN25 M1 PO (06:40)
[2019-05-07 06:53] VITALS: BP 107/60; BMI 22.3
--- NOTE | 2019-05-07 09:51 | NUR ---
0940 O2 SAT NOTED @ LEVELS OF 89% & 86% ON ROOM AIR WITH RETURN OF O2 SAT UP TO 90%. O2 2L.NASAL CANNULA APPLIED. Lacie GARCIA R.N.
--- NOTE | 2019-05-07 12:42 | NUR ---
1055 TO SURGERY VIA STRETCHER. Lacie GARCIA R.N.
--- NOTE | 2019-05-07 12:43 | NUR ---
PATIENT ALLERGIC TO CONTRAST DYE, DR DOTY NOTIFIED, USING CONTRAST IN [place] ONLY, DEMETRICE.
[2019-05-07 14:25] VITALS: BP 112/53
--- NOTE | 2019-05-07 14:30 | NUR ---
RECEIVED PT FROM RECOVERY VIA BED ON 3L O2, NC. ACCOMPANIED BY RECOVERY NURSE. RECEIVED REPORT AT BEDSIDE. BRUISING TO PT'S RIGHT AND LEFT CHEEKS. IV TO RIGHT AC, SL. SITE PATENT WITHOUT REDNESS OR SWELLING. NEPHROSTOMY TUBE TO LEFT SIDE, BLOODY DRAINAGE. PT ALERT AND ORIENTED. NO C/O PAIN. NO S/S OF ACUTE DISTRESS NOTED. PT DENIES ANY NEEDS AT THIS TIME. CALL LIGHT IN REACH. SPOUSE AT BEDSIDE. WILL CONTINUE TO MONITOR.
[2019-05-07 15:47] VITALS: BP 112/53; Ht 170.2 cm; Wt 68.2 kg
--- NOTE | 2019-05-07 16:04 | OP ---
PATIENT NAME: KIMBERLY SANABRIA MEDICAL RECORD: [id number] :[birth year] LOCATION:D.MS [id number] ADMISSION DATE: SURGEON: HECTOR DOTY MD DATE OF OPERATION: 05/07/2019 SURGEON: Hector Doty MD ANESTHESIA: General anesthesia by Ashley Hay CRNA. DIAGNOSES: Left lower pole staghorn renal calculus 2.5 cm, cystinuria. PROCEDURE: Left percutaneous nephrolithotomy (PCNL), cystoscopy. FINDINGS: Radiodense lower pole renal stone with minimal renal parenchyma around it. BLOOD LOSS: Minimal. CLINICAL HISTORY: This is a 58-year-old female, who initially presented with an infected left staghorn renal calculus. I performed a left percutaneous nephrolithotomy upon her. The stone analysis came back as 100% cystine. She was diagnosed with cystinuria. I had her started on potassium citrate 10 mEq p.o. b.i.d. to try to prevent future cystine renal stone formation. She went and saw Dr. Perry of nephrology. A 24-hour urine revealed that she had supersaturation of cystine and even the potassium citrate alone would not be adequate treatment. He suggested that she be placed on Thiola. We are negotiating with her insurance for her to get coverage for the Thiola. They wanted her to be on the penicillamine. In the meantime, she has developed yet another large staghorn renal calculus now in the lower pole of the kidney. This is seen on CT scan. I would estimate the stone as being about 2.5 cm in size. She comes today to have the stone removed by percutaneous nephrolithotomy. SHE IS ALLERGIC TO NUMEROUS ANTIBIOTICS, BUT SHE IS ABLE TO TOLERATE ANCEF. She was given Ancef caregivers non medical to the OR. The patient earlier this morning went to the interventional radiology suite and interventional radiology provided a percutaneous nephroureteral access through the lower pole. We are now using this access to get into the kidney. DESCRIPTION OF PROCEDURE: The patient was given induction of general anesthesia in supine position. She was then turned into prone position and placed on the Rogelio frame. She was prepped and draped in the perineum. Cystoscopy was performed and grasping forceps were used to pull the distal end of the nephroureteral tube out through the urethra. This will allow us to clamp the nephroureteral access wire to prevent its loss by backward migration. The back was prepped and draped. The nephroureteral catheter was accessed using the Amplatz Super Stiff wire. Once the wire came out through the urethra, hemostat was placed on it to clamp off the wire. The nephroureteral catheter was then removed entirely. A #15 blade was used to make an incision on either side of the wire. Over the Super Stiff wire, we inserted the dual-lumen catheter. This was placed down into the proximal ureter. Through the second lumen of the catheter, we inserted a sensor wire. The sensor wire was seen to coil within the bladder. The dual-lumen catheter was then removed, leaving the [address] The sensor wire was clamped off to the drapes to serve as a safety wire. We worked over the Super Stiff wire. A NephroMax balloon was then introduced. The tract was dilated with 20 atmospheres of pressure and then the working OPERATIVE REPORT [id number] KIMBERLY SANABRIA sheath was placed down over the balloon into the renal pelvis. Our initial tract dilation went a little too far and we had actually perforated through the renal pelvis. This will spontaneously heal with the nephrostomy tube in place. Pulling back and looking down the lower pole renal calyx, we identified a very large staghorn calculus. I used the Icelandic LithoClast ultrasonic modality to break up the stone into smaller pieces. These pieces were then retrieved out of the renal joanna using the Cook Egiy-P-Xuuzjm basket. Remaining fragments were removed using the Icelandic LithoClast ultrasonic modality. At the end of the procedure, no further stone fragments could be seen fluoroscopically. No further stone fragments were seen via nephroscopy. The scope was then removed. A 24-Ugandan Malecot nephrostomy tube was placed into the renal pelvis. The stylet was removed from the nephrostomy tube and the Malecot wings were allowed to expand. Once the nephrostomy tube was in good position, the wires and the working sheath were removed entirely. The sheath was sutured down to the skin using 2-0 nylon. The sheath will be put to bag drainage. The patient was awakened and brought back to the recovery room. The Devine catheter, which she had during the case, was removed prior to her waking up. TRANSINT:[id number] Voice Confirmation ID: [id number] DOCUMENT ID: [id number] HECTOR DOTY MD at 1604 CC: [id number] DICTATION DATE: 05/07/19 1337 BENCH MOLDER: 05/07/19 1428 REG [place] [id number] [place] [id number]
[2019-05-07 16:37] VITALS: BP 104/71
--- NOTE | 2019-05-07 18:46 | NUR ---
ALERT AND ORIENTED, RESTING IN BED. NO C/O PAIN. NO S/S OF ACUTE DISTRESS NOTED. PT DENIES ANY NEEDS AT THIS TIME. CALL LIGHT IN REACH. SPOUSE AT BEDSIDE.
--- NOTE | 2019-05-07 20:00 | NUR ---
ASSESSMENT PER FLOWSHEET. LEFT NEPHROSTOMY TUBE IN PLACE WITH BLOODY URINE NOTED.SPOUSE AT BEDSIDE. PT'S EYES CLOSED RESPIRATIONS WITH EASE. O2 ON 3L/M PER NC. HOB UP 40 DEGREES. SPOUSE STATES HAS BEEN SLEEPING ALL DAY AND NOT TAKING PO FLUIDS VERY WELL. IV FLUIDS STARTED OF 1/2NS AT 30CC'S/HR. TIL PATIENT STARTS TO WAKE UP MORE.
[2019-05-07 20:18] VITALS: BP 140/76
--- NOTE | 2019-05-07 21:14 | NUR ---
C/O PAIN AND NAUSEA. DILAUDID 2MG SIVP GIVEN ZOFRAN 4MG IVP GIVEN FOR PAIN AND NAUSEA.
--- NOTE | 2019-05-07 23:15 | NUR ---
VS TAKEN B/P 88/54. PT DOES AROUSE TO VERBAL STIMULI. IV FLUIDS INCREASED TO 100CC'S/HR.
[2019-05-08 00:44] VITALS: BP 82/37
[2019-05-08 04:43] VITALS: BP 100/48
--- NOTE | 2019-05-08 06:00 | NUR ---
RESTING QUIETLY NO CHANGES IN ASSESSMENT.
--- NOTE | 2019-05-08 07:20 | NUR ---
PATIENT RECIEVED RESTING WITH NO NEEDS VOICED, REPORTS VOIDING WITHOUT DIFFICULTY. NEPHROSTOMY DRAINING BLOODY FLUID TO BEDSIDE DRAINAGE BAG.
[2019-05-08 08:46] VITALS: BP 90/47
--- NOTE | 2019-05-08 14:31 | MORECARE ---
CASE MANAGEMENT DISCHARGE SUMMARY PATIENT: KIMBERLY SANABRIA UNIT: [id number] ADM DATE: 05/07/19 AGE: 58 : 62 SEX: F ROOM/BED: D.2234 AUTHOR: NADER GRANT PHYSICIAN: REFERRING PHYSICIAN: HECTOR DOTY MD DATE OF SERVICE: 05/08/19 Discharge Plan Patient Name: KIMBERLY SANABRIA Facility: [facility]:[place] : 1960 Planned Disposition: Home Anticipated Discharge Date: Discharge Date: Expected LOS: Initial Reviewer: [email or web address] Initial Review Date: 05/08/2019 Generated: 05/08/19 3:31 pm Comments DCP- Discharge Planning Updated by [email or web address]: Pamela Taylor on 05/08/19 1:[address] Patient Name: KIMBERLY SANABRIA Admission Status: Elective Accout number: [id number] Admission Date: 05-07-2019 : 1960 Admission Diagnosis: Attending: RAYMON DOTY Current LOS: 1 Anticipated DC Date: Planned Disposition: Home Primary Insurance: [employer] [facility] Discharge Planning Comments: CM met with patient at bedside after explaining CM role and obtaining verbal consent. CM discussed availability / needs of home health and medical equipment. Patient denies any discharge needs at this time. CM TO FOLLOW AND ASSIST. Well Drill Operator Rotary Drill: Pamela Taylor DCPIA - Discharge Planning Initial Assessment Updated by [email or web address]: Pamela Taylor on 05/08/19 2:27 pm * Is the patient Alert and Oriented? Yes * PCP [facility] * Pharmacy [facility] * Preadmission Environment Home with Family * ADLs Independent * Equipment None * List name and contact numbers for known caregivers / representatives who currently or will assist patient after discharge: BILL, * Community resources currently utilized None * Additional services required to return to the preadmission environment? No * Can the patient safely return to the preadmission environment? Yes * Has this patient been hospitalized within the prior 30 days at any hospital? No Patient Name: KIMBERLY SANABRIA Page 79524 at 1431 All edits/amendments must be made on the electronic document DICTATION DATE: 05/08/19 1431 DIRECTOR REPORT: LAYLA 05/08/19 1431 RPT#: [id number] DC DATE: STATUS: ADM IN [facility] [address] [place] [address] END OF REPORT
--- NOTE | 2019-05-08 17:18 | NUR ---
IV REMOVED WITH NO REDNESS OR EDEMA AT SITE. DRESSING CHANGED TO NEPHROSTOMY DRAIN AND LEG BAG APPLIED, EDUCATED PATIENT AND SPOUSE ON LEG BAG AND DRESSING CHANGE.
[2019-05-08] MEDS ORDERED: DEMEROL100 MG PO (17:37)
--- NOTE | 2019-05-09 09:23 | MORECARE ---
CASE MANAGEMENT DISCHARGE SUMMARY PATIENT: KIMBERLY SANABRIA UNIT: [id number] ADM DATE: 05/07/19 AGE: 58 : 62 SEX: F ROOM/BED: D.2234 AUTHOR: NADER GRANT PHYSICIAN: REFERRING PHYSICIAN: HECTOR DOTY MD DATE OF SERVICE: 05/09/19 Discharge Plan Patient Name: KIMBERLY SANABRIA Facility: [facility]:[place] : 1960 Planned Disposition: Home Anticipated Discharge Date: Discharge Date: 05/08/2019 Expected LOS: Initial Reviewer: [email or web address] Initial Review Date: 05/08/2019 Generated: 05/09/19 10:23 am Comments DCP- Discharge Planning Updated by [email or web address]: Pamela Taylor on 05/08/19 1:[address] Patient Name: KIMBERLY SANABRIA Admission Status: Elective Accout number: [id number] Admission Date: 05-07-2019 : 1960 Admission Diagnosis: Attending: RAYMON DOTY Current LOS: 1 Anticipated DC Date: Planned Disposition: Home Primary Insurance: [employer] [facility] Discharge Planning Comments: CM met with patient at bedside after explaining CM role and obtaining verbal consent. CM discussed availability / needs of home health and medical equipment. Patient denies any discharge needs at this time. CM TO FOLLOW AND ASSIST. Customer Account Manager: aPmela Taylor DCPIA - Discharge Planning Initial Assessment Updated by [email or web address]: Pamela Taylor on 05/08/19 2:27 pm * Is the patient Alert and Oriented? Yes * PCP [facility] * Pharmacy [facility] * Preadmission Environment Home with Family * ADLs Independent * Equipment None * List name and contact numbers for known caregivers / representatives who currently or will assist patient after discharge: BILL, * Community resources currently utilized None * Additional services required to return to the preadmission environment? No * Can the patient safely return to the preadmission environment? Yes * Has this patient been hospitalized within the prior 30 days at any hospital? No Last DP export: 05/08/19 1:31 p Patient Name: KIMBERLY SANABRIA Page [id number] at 0923 All edits/amendments must be made on the electronic document DICTATION DATE: 05/09/19922 ANALYST: LAYLA 05/09/19922 RPT#: [id number] DC DATE:05/08/19 STATUS: DIS IN [facility] [address] [place] [address] END OF REPORT
[2019-05-16 14:09] LABS: CALCULI - CALCIUM PHOSPHATE 15 % (()); CALCULI - COLOR Tan (()); CALCULI - COMMENT Note: (()); CALCULI - CYSTINE 82 % (()); CALCULI - WEIGHT 438.3 mg (())
== END 2019-05-08 18:44 | disposition home or self-care (01) | DRG 660 ==
LOC: D.SP 06:00 → D.OPS 07:30 → D.SP 07:30 → D.PAN 07:30 → D.OPS 08:00 → D.MS 13:43 → D.SP 13:44 → D.MS 13:45
PROVIDERS: Radiology Vascular & Interventional Radiology; ADMIT Urology; ATTEND Urology
PROC: 0T143JD Bypass Left Kidney Pelvis to Cutaneous with Synthetic Substitute, Percutaneous Approach (ICD-10-PCS; 2019-05-07)
PROC: 0TC13ZZ Extirpation of Matter from Left Kidney, Percutaneous Approach (ICD-10-PCS; principal; 2019-05-07 08:00)
DX: N20.0 Calculus of kidney (principal); N11.9 Chronic tubulo-interstitial nephritis, unspecified; Z87.442 Personal history of urinary calculi; I25.10 Atherosclerotic heart disease of native coronary artery without angina pectoris; I50.9 Heart failure, unspecified; E78.5 Hyperlipidemia, unspecified

== ENCOUNTER → 2019-05-29 19:46 | Outpatient (CLI) | payer BC ==
[2019-05-07 15:47] VITALS: BMI 23.5
[~2019-05-29 19:46] MED LIST changes: +DEMEROL100 MG PO; +PREDNISONE10 MG PO
== END | disposition home or self-care (01) ==
LOC: D.LABREF 19:46
PROVIDERS: ATTEND Urology
DX: R31.9 Hematuria, unspecified (principal)

== ENCOUNTER → 2019-07-03 18:45 | Outpatient (CLI) | payer BC ==
[2019-05-07 15:47] VITALS: BMI 23.5
== END | disposition home or self-care (01) ==
LOC: D.LABREF 18:45
PROVIDERS: ATTEND Urology
DX: D70.8 Other neutropenia (principal); R31.9 Hematuria, unspecified

== ENCOUNTER → 2019-07-09 09:38 | Outpatient (CLI) | payer BC ==
[2019-05-07 15:47] VITALS: BMI 23.5
[2019-07-09 11:52] LABS: APPEARANCE CLEAR (CLEAR); COLOR YELLOW (YELLOW); GLUCOSE NEGATIVE (NEGATIVE); NITRITE NEGATIVE (NEGATIVE); PROTEIN NEGATIVE (NEGATIVE); SPECIFIC GRAVITY 1.005 (1.005-1.020)
[2019-07-09 11:53] LABS: BACTERIA MODERATE /hpf (NEGATIVE); BILIRUBIN NEGATIVE (NEGATIVE); EPITHELIAL CELLS 0-5 /hpf (0-5); KETONE NEGATIVE (NEGATIVE); MUCUS <1+ /lpf (NONE SEEN); WHITE CELLS - URINE RARE /hpf (NEGATIVE)
[2019-07-15 16:08] LABS: AEROBE ID Final report (())
== END | disposition home or self-care (01) ==
LOC: D.LABREF 09:38
PROVIDERS: ATTEND Urology
DX: N39.0 Urinary tract infection, site not specified (principal)

== ENCOUNTER → 2019-07-11 09:00 | Outpatient (CLI) | payer BC ==
[2019-05-07 15:47] VITALS: BMI 23.5
== END | disposition home or self-care (01) ==
LOC: D.MAMMO 09:00
PROVIDERS: ATTEND Family Medicine
DX: Z12.31 Encounter for screening mammogram for malignant neoplasm of breast (principal)

== ENCOUNTER → 2019-07-22 08:22 | Outpatient (CLI) | payer BC ==
[2019-05-07 15:47] VITALS: BMI 23.5
== END | disposition home or self-care (01) ==
LOC: D.MAMMO 08:22
PROVIDERS: ATTEND Family Medicine
DX: R92.8 Other abnormal and inconclusive findings on diagnostic imaging of breast (principal)

== ENCOUNTER 2020-12-11 20:05 | Outpatient (CLI) | payer BC ==
[2019-05-07 15:47] VITALS: BMI 23.5
== END 2020-12-11 23:59 | disposition home or self-care (01) ==
LOC: D.MAMMO 20:05
PROVIDERS: ATTEND Family Medicine
DX: Z12.31 Encounter for screening mammogram for malignant neoplasm of breast (principal)